=== PATIENT | male | born 1960 | race Caucasian/White ===

== ENCOUNTER → 2017-05-31 | Outpatient (CLI) | payer BC ==
[~2017-05-31] MED LIST: ASCO10004 PO; CHOL20002 PO; FERR325T10 PO; OMEP20TA62 PO; PITA2TAB2 PO
[2017-05-31 12:47] LABS: ASPARTATE AMINO TRANSFERASE 16 U/L (15-37); BLOOD UREA NITROGEN 11 mg/dL (7-18)
[2017-05-31 13:41] LABS: ANISOCYTOSIS 3+; HYPOCHROMIA 1+; MICROCYTOSIS 2+
[2017-05-31 13:42] LABS: OVALOCYTES 1+; POIKILOCYTOSIS 1+
== END | disposition home or self-care (01) ==
LOC: STAR 11:32
PROVIDERS: ATTEND Surgery
DX: Z01.818 Encounter for other preprocedural examination (principal); C18.6 Malignant neoplasm of descending colon; I10 Essential (primary) hypertension; E78.5 Hyperlipidemia, unspecified
CPT/HCPCS: 36415; 80053; 85025